=== PATIENT | female | born 1980 | race Caucasian/White ===

== ENCOUNTER 2020-11-07 10:19 | Day surgery (SDC) | payer OTHER, SELFPAY ==
--- NOTE | 2020-11-05 12:19 | HP.PCM_ITS ---
History and Physical Date of Admission: 11/07/20 Pre-Op History and Physical ? HPI: The patient is a 40 year old female presenting for pre-operative visit. She is scheduled for laparoscopic bilateral salpingectomy, for Desires sterilization on 11/07/20. Procedure discussed along with risks, benefits and complications. Other alternatives discussed for management. Consent form signed? Yes. ? ? PAST MEDICAL HISTORYExpand by Default PAST MEDICAL HISTORY Diagnosis Date ? Factor 5 Leiden mutation, heterozygous (HCC) ? ? H/O blood clots ? ? 2 Blood Clots (after baby 2 and baby 3. ? 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 ? ? PAST SURGICAL HISTORY PAST SURGICAL HISTORY Procedure Laterality Date ? NONE ? CURRENT MEDICATIONS Current Outpatient Medications Medication Sig Dispense Refill ? ibuprofen (MOTRIN) 600 mg tablet Take 1 tablet by mouth every 6 hours as needed. 30 tablet 0 ? simethicone, chewable (MYLICON) 80 mg chewable tablet Take 1 tablet by mouth every 6 hours as needed. 30 tablet 0 ? No current facility-administered medications for this visit. ? ? ALLERGIES: Patient has no known allergies. ? PERSONAL HISTORY: SOCIAL HISTORY Social History ? Tobacco Use ? Smoking status: Never Smoker ? Smokeless tobacco: Never Used Substance Use Topics ? Alcohol use: Yes ? ? Comment: Occasionally ? Drug use: Never ? FAMILY HISTORY: FAMILY HISTORY FAMILY HISTORY Problem Relation Age of Onset ? Factor 5 Leiden Sister ? ? other (MTHFR) Sister ? ? Blood Clots Maternal Grandmother ? ? Diabetes Maternal Grandfather ? ? Stroke Paternal Grandmother ? ? Cancer Paternal Grandfather ? ? No Known Problems Daughter ? ? No Known Problems Son ? ? No Known Problems Daughter ? ? No Known Problems Daughter ? ? ? REVIEW OF SYMPTOMS: Denies CP, SOB, dizziness. ? PHYSICAL EXAMINATION: ? VITALS: Blood pressure 112/70, height 5' 6 (1.676 m), weight 131 lb (59.4 kg), last menstrual period 10/26/2020. ? GENERAL: The patient is well nourished, well hydrated in no acute distress. , The patient is oriented to time, place, and person. NECK: full range of motion GENITALIA: deferred WET PREP: Not indicated ? IMPRESSION: 40 yo requesting permanent sterilization. ? PLAN: Laparoscopic Bilateral salpingectomy ? Pt has been counseled on risks/benefits and alternatives of surgery including but not limited to anesthesia, bleeding, infection, injury to pelvic structures including bowel, bladder, ureters and vessels. Pt wishes to proceed with surgery at this time. Risk of regret reviewed ? Post op motrin and mylicon given ? I have reviewed and updated past medical and surgical history, medications and allergies Rani Lofton MD ?5:44 PM Procedure Criteria Procedure Type: Elective COVID Risk Discussion: The surgeon/proceduralist and patient have discussed in detail the risk of exposure to and/or potential harm posed by the COVID-19 virus with having a surgery/procedure at this time versus the risk of delaying the surgery/pr ocedure. It is not possible to know either the risk of delaying the surgery or procedure or chance of getting an infection with perfect accuracy, but a joint decision was made between the patient and the surgeon/proceduralist to proceed at this time with the scheduled surgery/procedure as indicated on the consent form.
[2020-11-07 10:42] VITALS: BP 112/77; PULSE 58; RESP 14; TEMP 36.5; O2SAT 100; BMI 20.7
[2020-11-07 10:56] LABS: Hematocrit 42.5 % (37-47); Mean Corp Hgb Conc 32.9 g/dL (32-36); Mean Platelet Vol. 10.5 fl (6.2-12.0); Platelet Count 245 K/mm3 (150-450); RBC Distribution Width SD 39.1 fl (35.1-43.9); Red Blood Count 4.67 M/mm3 (4.2-5.4); White Blood Count 6.8 K/mm3 (4.4-11.0)
[2020-11-07 10:59] LABS: Internal QC Validated? YES +Cl - CLEAR BKGD; Pregnancy, Urine Negative Negative
--- NOTE | 2020-11-07 11:03 | DCINST_ITS ---
Discharge Diet: No Restrictions, - - Increase fluid intake for 48 hours. Discharge Activity: Return to Normal Activity, May Drive - when you are no longer taking narcotic pain medications., May Shower, May Take a Tub Bath - in 7 days., - - Ambulate often the next week after surgery. May resume sexual activity in: 1 week Lifting Restrictions: 20 Additional Activity Instructions:: Nothing in the vagina for the next 5 days. Call your doctor if your incision/area has: Continuous Slow Oozing, Sudden Increased Bleeding, Increased Pain/ Swelling, Increased Redness, Foul Smelling Discharge, Swelling at the incision site Call your doctor if you observe: Fever of 101 or Higher Cleanse incision/area with: Keep Dressing Clean & Dry, - - You have skin glue over your incision sites. Do not pick it off. You may let the soap and water run over the areas. Allergies/Adverse Reactions: Allergies No Known Allergies Allergy (Verified 10/31/20 09:08) Medications to take at Discharge NK 10/31/20 Primary Care Physician: Care Physician,No Primary [Primary Care Provider] - Test Results: Test results from this visit will be discussed in further detail at your follow- up appointment, if applicable. Please Follow Up With: Rani Bonilla MD When: as scheduled in 2 weeks
--- NOTE | 2020-11-07 11:09 | OP.PCM_ITS ---
Report of Operation Date of Procedure: 11/07/20 - start time:1133 end time:1156 Pre-Operative Diagnosis: desires sterilization Post-Operative Diagnosis: same Surgery/Procedure Performed:: Laparoscopic Bilateral salpingectomy Description of Surgical Findings:: normal tubes and ovaries bilaterally professor of environmental studies: salvador Victoria - MS3- no qualified resdient. Graining Machine Operator held filomena Type of Anesthesia:: General Special Medications: .5% marcaine Specimen's removed: bilateral fallopian tubes Drains: none Estimated Blood Loss (mL): <5cc Fluids Replaced: 600 Description of Procedure: After informed consent was obtained patient was taken to the operating room she was placed in supine position she was given anesthesia. She was then placed in the [facility] stirrups and she was prepped and draped in normal sterile fashion. Bladder was drained prior to the start of procedure. At this time attention was turned to the vaginal portion where weighted speculum placed at posterior fornix vagina single-tooth tenaculum was used to gently grasp the internal the cervix. uterus was gently sounded to approximately cm. Uterine manipulator was placed without difficulty. Legs then placed in parallel with the abdomen the tenaculum and the weighted speculum were removed. 2 towel clamps were placed at level of umbilicus. Marcaine was injected infraumbilical and a small incision was made. The 5 mm trocar was placed under direct visualization. CO2 gas was used to insufflate the intra-abdominal cavity. Upon inspection no gross abnormalities appreciated- the uterus tubes and ovaries appeared to be normal. At this time then the LLQ and RLQ ports were placed First Marcaine was injected and small incision was made a knife and the 5 mm trocars were placed. At this time then tubes were traced back to the fimbriated ends. Ligasure was used to coagulate and ligate along mesosalpinx bilaterally until tubes removed completely. Good hemostasis was appreciated. At this time procedure was deemed complete successful. The gas was desufflated on from the intra-abdominal cavity. The trocars were removed. Skin was closed using 4-0 Monocryl in a subcutaneous fashion. Dermabond glue was placed. Instrument lap and needle counts were correct ?2. The uterine manipulator was removed. Vaginal sweep was performed it was negative. There were no complications anticipated normal postoperative course for this patient. Grafts/Implants Used: none - Complications none - Admit VTE Documentation VTE Present on Admission: Yes VTE Mechan Device Prophylaxis: SCD's VTE Pharm Prophylaxis ordered?: No
[2020-11-07] MEDS: Bupivacaine Mpf 0.5% 30 ML VIAL (11:34)
--- NOTE | 2020-11-07 12:00 | FALS_PTH ---
PATIENT: YOMI TAYLOR [place] [facility] [place][id number] AGE/SX: 40/F ROOM: RE11/07/[address]: Dr. Rani Bonilla, MDDOB: 1980 BED: DIS: 11/07/2020 SPEC #: [id number] RECD: 11/07/20 12:44 STATUS: JOSE DIANELYS #: [id number] JACK: 11/07/20 12:[address]: Rani Bonilla DEPT: SURGICAL PATHOLOGY RECD BY: Rosalia Hernández ENTERED: 11/08/20 06:26 SP TYPE: FALL TUBES OTHR DR: No Primary Care Phys Tissues: Fallopian tube Procedures: Surgery Specimen Level II HEADER OPERATION: Laparoscopic salpingectomy PRE-OP DIAGNOSIS: Sterilization TISSUE SUBMITTED: Bilateral fallopian tubes MICROSCOPIC DIAGNOSIS Bilateral fallopian tubes, salpingectomy: Bilateral fallopian tubes including fimbrial ends, no pathologic diagnosis. SJ:syd 11/11/2020 MICROSCOPIC DESCRIPTION Slides are reviewed. GROSS DESCRIPTION Received in fixative is one container labeled with the patient's name and designated bilateral fallopian tubes. The specimen consists of bilateral fallopian tubes including fimbrial ends measuring 7 cm in length and 0.5 cm in diameter and 6.5 cm in length and 0.6 cm in diameter. The fallopian tubes are not identified as right or left. Sections reveal unremarkable cut surfaces. Property Administrator sections are submitted in two cassettes with each cassette containing one fallopian tube. / Dani 11/08/20 TC:4 CPT: 54355 x2
[2020-11-07 12:09] VITALS: BP 112/77; BP 118/80; PULSE 72; RESP 16; TEMP 36.4; O2SAT 100
[2020-11-07 12:15] VITALS: BP 112/77; BP 98/68; PULSE 73; RESP 16; O2SAT 100
[2020-11-07 12:30] VITALS: BP 106/76; BP 112/77; PULSE 56; RESP 16; O2SAT 100
[2020-11-07 12:44] VITALS: BP 110/76; BP 112/77; PULSE 52; RESP 18; TEMP 36.4; O2SAT 100
[2020-11-07 13:30] VITALS: BP 112/77; BP 119/60; PULSE 60; RESP 16; TEMP 36.2; O2SAT 100
== END 2020-11-07 13:42 | disposition home or self-care (01) ==
LOC: SDC 10:20 → AC 10:23
PROVIDERS: Anesthesiology; Referring Provider Obstetrics & Gynecology; Visit Provider Obstetrics & Gynecology
PROC: (CPT 58661; principal; 2020-11-07 11:45)
DX: Z30.2 Encounter for sterilization (principal); D68.51 Activated protein C resistance; Z86.718 Personal history of other venous thrombosis and embolism; E72.12 Methylenetetrahydrofolate reductase deficiency; E72.11 Homocystinuria
CPT/HCPCS: 58661; 81025; 85027; 88302; J7120; J2405